=== PATIENT | male | born 1950 | race Caucasian/White ===

== ENCOUNTER → 2023-08-14 06:26 | Day surgery (SDC) | payer MEDICARE, OTHER, SELFPAY | LOC: GI 06:26 | PROVIDERS: ATTENDING PHYSICIAN Internal Medicine Gastroenterology | DX: Z12.11 Encounter for screening for malignant neoplasm of colon (principal); K57.30 Diverticulosis of large intestine without perforation or abscess without bleeding; K64.8 Other hemorrhoids; D12.3 Benign neoplasm of transverse colon; Z86.010 Personal history of colon polyps | CPT/HCPCS: 45380; 88305 ==

== ENCOUNTER 2023-10-16 14:35 | Emergency (ER) | payer MEDICARE, OTHER, SELFPAY ==
[2023-10-16 14:37] VITALS: BP 111/71
--- NOTE | 2023-10-16 14:49 | ED.SKININJ ---
HPI-Injury
General
Chief Complaint: Skin Surface Trauma
Source: patient
Exam Limitations: none
Time Seen by Provider: 10/16/23 14:48
Nursing documentation reviewed up to this point in time: agreed with
History of Present Illness-Injury
Initial Injury comments:
73-year-old male with no significant past medical history was laying slate at home and he accidentally struck his left pinky finger with his hammer. Had Tdap 2 and half years ago.
Past History
Past History
ED Past Medical History: None
ED Past Surgical History: Orthopedic
Patient has exhibited threatening behavior?: No
Social History
Tobacco: Non-smoker
Personal:
Living: with family
Employment: Employed
Review of Systems
Review of Systems
Allergies reviewed?: Yes
All Other Systems: ROS reviewed and negative except as documented in HPI and ROS
Musculoskeletal: Reports other (Pain distal left pinky finger)
Skin: Reports other (Left pinky finger nail is avulsed)
Phy Exam
Physical Exam
Physical Exam:
PHYSICAL EXAMINATION:
GENERAL: No acute distress. A&Ox3.
CONSTITUTIONAL: Afebrile.
RESPIRATORY: Regular respirations, nonlabored, lungs clear.
CARDIOVASCULAR: Regular rate and rhythm, no murmurs, no rubs.
MUSCULOSKELETAL: Crush injury to distal left fifth finger, nail is completely avulsed and laying on the nail bed, minimal bleeding, significant pain. Well perfused. Decreased sensation to finger tip, mildly dusky tip.
SKIN: Warm, dry, pink
PSYCH: Normal mood and affect. Well kept, interactive and appropriate
NEUROLOGIC: Awake, alert and oriented.
Course
Orders/Labs/Results
Orders:
Orders
10/16/23 14:54
Finger(s)/Thumb 2 View Lt [CR Finger(s)/thumb Min 2 Vw Lt] Urgent
Comment:
Reason For Exam: 5th finger
10/16/23 15:59
Tetanus/Diphth/Acelpertussis [Adacel] 0.5 ml IM .ONCE ONE
Vital Signs
Initial and Last Documented VS:
Initial Vital Signs
Temp Pulse Resp BP Pulse Ox
97.6 F 60 20 111/71 99
10/16/23 14:37 10/16/23 14:37 10/16/23 14:37 10/16/23 14:37 10/16/23 14:37
Last Documented Vital Signs
Temp Pulse Resp BP Pulse Ox
97.6 F 60 20 111/71 99
10/16/23 14:37 10/16/23 14:37 10/16/23 14:37 10/16/23 14:37 10/16/23 14:37
Procedures
Digital Block
Location of injection for digital block: base of digit
Indiction for Digital Block: surgical repair
Was sensory exam normal prior to exam?: decreased pin prick
Type of anesthesia: Marcaine
Complications: none- good anesthesia
Additional information:
Nail easily removed from nail bed, cleansed with surgi scrub, placed back into the matrix and sutured corners in with #2 [4-0] Prolene sutures. ATB ointment, nonstick and tube gauze dressing applied.
MDM/Problems Addressed
MDM/Problems Addressed:
73-year-old male with no significant past medical history was laying slate at home and he accidentally struck his left pinky finger with his hammer. Unsure of last tetanus booster
Xray of finger : no obvious fracture. There is constant oozing of blood of the nailbed and macerated skin of fingertip, I will give antibiotic for possible occult fx of distal tuft.
Nail replaced back into matrix and corners sutured in
ATB ointment, nonstick and tube gauze dressing applied. Bleeding controlled
Pt does not take Xarelto any longer.
*Critical Care Note
Total Time (30-74mins, 75-104mins- exclusive of procedures): Not Applicable
ED Attending Note
-
Portions of this chart may have been created with voice recognition software.� Occasional wrong word or��sound alike� substitutions may have occurred due to the inherent limitations of voice recognition software.
Discharge Plan
Departure
Patient Disposition: Home (Routine Discharge)
Date of Disposition: 10/16/23
Time of Disposition: 16:00
Patient with high blood pressure during this ER visit?: No
Condition: Good
Discharge Problem:
Traumatic avulsion of nail plate of finger
Prescriptions:
New
cephalexin 500 mg capsule
500 mg PO QID 7 Days Qty: 28 0RF
No Action
rivaroxaban [Xarelto] 15 MG tablet
15 mg PO BID Qty: 41 0RF
Referrals:
Jamil Mendez MD [Active] - Next open appointment
Skyla Pepe DO [Family Provider] -
Activity Restrictions/Additional Instructions:
As we discussed, call Dr. Eugene office today or tomorrow morning and make an appointment for a wound check and dressing change on Saturday or Saturday. Keep the dressing on, clean and dry until then.
Tylenol or ibuprofen as needed for pain. Elevating the hand slightly higher than your heart may minimize throbbing pains.
I sent a prescription to your pharmacy for Keflex 500 mg 4 x a day for 7 days.
Interventions
Interventions:
*Nursing Disposition Last Done: 10/16/23 16:28
Discharge Date and Time
Discharge Date/Time: 10/16/23 16:28
Print Language: FRISIAN
[2023-10-16] MEDS: ADACEL 0.5 ML IM (16:14)
== END 2023-10-16 16:28 | disposition home or self-care (01) ==
LOC: EMR 14:35
PROVIDERS: EMERGENCY PHYSICIAN Emergency Medicine; FAMILY PHYSICIAN Family Medicine
DX: S61.307A Unspecified open wound of left little finger with damage to nail, initial encounter (principal); W22.8XXA Striking against or struck by other objects, initial encounter; Z23 Encounter for immunization
CPT/HCPCS: 99283; 11730; 90471; 12001; 73140; 90715

== ENCOUNTER → 2024-08-26 12:20 | Outpatient (REF) | payer MEDICARE, OTHER, SELFPAY | LOC: RAD 12:20 | PROVIDERS: ATTENDING PHYSICIAN Family Medicine; FAMILY PHYSICIAN Family Medicine | DX: R05.1 Acute cough (principal); R31.29 Other microscopic hematuria; R07.81 Pleurodynia | CPT/HCPCS: 71101; 74018 ==

== ENCOUNTER 2024-11-20 06:26 | Outpatient (RCR) | payer MEDICARE, OTHER, SELFPAY | END 2024-11-20 23:59 | disposition home or self-care (01) | LOC: RPT 06:26 | PROVIDERS: ATTENDING PHYSICIAN Family Medicine | DX: M54.6 Pain in thoracic spine (principal); Z73.6 Limitation of activities due to disability | CPT/HCPCS: 97010; 97110; 97140; 97162 ==

== ENCOUNTER → 2024-11-25 06:33 | Outpatient (REF) | payer MEDICARE, OTHER, SELFPAY | LOC: MRI 3T 06:33 | PROVIDERS: ATTENDING PHYSICIAN Family Medicine | DX: M54.50 Low back pain, unspecified (principal) | CPT/HCPCS: 72148 ==

== ENCOUNTER 2024-12-22 12:09 | Outpatient (RCR) | payer MEDICARE, OTHER, SELFPAY | END 2024-12-22 23:59 | disposition home or self-care (01) | LOC: RPT 12:09 | PROVIDERS: ATTENDING PHYSICIAN Family Medicine | DX: M54.6 Pain in thoracic spine (principal); Z73.6 Limitation of activities due to disability | CPT/HCPCS: 97010; 97110; 97140 ==

== ENCOUNTER 2025-01-12 07:06 | Outpatient (RCR) | payer MEDICARE, OTHER, SELFPAY | END 2025-01-12 23:59 | disposition home or self-care (01) | LOC: RPT 07:06 | PROVIDERS: ATTENDING PHYSICIAN Family Medicine | DX: M54.6 Pain in thoracic spine (principal); Z73.6 Limitation of activities due to disability | CPT/HCPCS: 72146; 97010; 97110; 97140 ==

== ENCOUNTER 2025-01-26 07:16 | Outpatient (RCR) | payer MEDICARE, OTHER, SELFPAY | END 2025-01-26 10:37 | disposition home or self-care (01) | LOC: RPT 07:16 | PROVIDERS: ATTENDING PHYSICIAN Family Medicine | DX: M54.6 Pain in thoracic spine (principal); Z73.6 Limitation of activities due to disability | CPT/HCPCS: 97110 ==